=== PATIENT | male | born 1955 | race Caucasian/White ===

== ENCOUNTER → 2020-02-18 | Outpatient (CLI) | payer OTHER, BC ==
[~2020-02-18] MED LIST: ACET65TA PO; ACETAZOLAMIDE PO; BETI1SOL OP; BIMA01SOL OD; BRIMONIDINE OD; CYCL-707; LATA0.0015 OP; LUMIGAN OD; NAPR-885; SIMV10TA21 PO
--- NOTE | 2020-02-25 12:08 | REP ---
CLAVICLE STUDY CLINICAL: Pain with muscle strain. TECHNIQUE: Two views of the left clavicle. FINDINGS: The clavicle is intact and there is no evidence for acute fracture or dislocation. Mild age-related degenerative changes at the acromioclavicular joint include subtle spurring and minimal subchondral sclerosis. Surrounding soft tissues are normal. IMPRESSION: Very mild age-related degenerative changes at the acromioclavicular joint. MTDD
--- NOTE | 2020-02-25 12:10 | REP ---
LEFT SHOULDER SERIES CLINICAL: Pain. Muscle strain. TECHNIQUE: Internal rotation, external rotation, and wide view of the left shoulder. FINDINGS: Subtle spurring and cortical irregularity at the acromioclavicular joint noted. The subacromial space is normal. No acute fracture or dislocation. No periarticular calcifications or loose bodies identified. IMPRESSION: Mild age-related degenerative changes at the acromioclavicular joint. MTDD
== END ==
LOC: M WUC 09:55
PROVIDERS: ATTEND Physician Assistant
DX: S46.012A Strain of muscle(s) and tendon(s) of the rotator cuff of left shoulder, initial encounter (principal); M19.012 Primary osteoarthritis, left shoulder; X58.XXXA Exposure to other specified factors, initial encounter; Y92.9 Unspecified place or not applicable

== ENCOUNTER → 2020-04-17 | Outpatient (CLI) | payer OTHER, BC | LOC: M LABSMTC 08:01 | PROVIDERS: ATTEND Anesthesiology | DX: Z01.812 Encounter for preprocedural laboratory examination (principal); Z20.828 Contact with and (suspected) exposure to other viral communicable diseases | CPT/HCPCS: C9803; U0003 ==

== ENCOUNTER → 2020-04-19 | Outpatient (CLI) | payer BC, OTHER ==
--- NOTE | 2020-04-19 13:35 | ECGEPIP ---
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 Electronically Signed on 04-19-2020 13:35:14 EDT by Cuco Koenig
== END ==
LOC: M EKG 12:17
PROVIDERS: ATTEND Anesthesiology
DX: I10 Essential (primary) hypertension (principal)

== ENCOUNTER 2020-04-22 08:19 | Day surgery (SDC) | payer OTHER, BC ==
[~2020-04-22] VITALS: Ht 167.6 cm; Wt 74.6 kg
[~2020-04-22 08:19] MED LIST changes: +LR 1,000 ML IV ONE; +ceFAZolin SOD 2 GM in IV 1 EA IV ONE; +fentaNYL 100 MCG/2 ML INJECTION (J3010) IV SCH
[2020-04-22] MEDS ORDERED: ROPIvacaine 0.5% 30ML INJECTION (J2795 PER 1MG) ONE (08:20)
[2020-04-22] MEDS ORDERED: EPINEPHrine INJ 1 MG/ML 1ML AMP ONE (08:20)
[2020-04-22] MEDS ORDERED: dexameTHASONE 10MG/1ML VIAL PRES.FREE (J1100 PER 1MG) ONE (08:20)
[2020-04-22] MEDS ORDERED: MIDAZOLAM INJ 2MG/2ML VIAL (J2250 PER 1MG) As Ordered ONE (09:21)
[2020-04-22] MEDS ORDERED: fentaNYL 100 MCG/2 ML INJECTION (J3010) As Ordered ONE ×2 (09:21→10:31)
[2020-04-22] MEDS: MIDAZOLAM INJ 2MG/2ML VIAL (J2250 PER 1MG) IV SCH ×2 (09:40→09:42)
[2020-04-22] MEDS ORDERED: EPINEPHrine 1MG/ML INJ 30ML MD-VIAL As Ordered ONE (10:06)
[2020-04-22] MEDS ORDERED: propofoL 200 MG/20 ML VIAL As Ordered ONE ×2 (10:31→12:25)
[2020-04-22] MEDS ORDERED: ONDANSETRON 4MG/2ML VIAL As Ordered ONE ×2 (10:32→13:47)
[2020-04-22] MEDS ORDERED: dexameTHASONE 4 MG/ML 1ML VIAL (J1100 PER 1MG) As Ordered ONE (10:32)
[2020-04-22] MEDS ORDERED: ROCURONIUM BROMIDE 50 MG/5 ML VIAL As Ordered ONE (10:32)
[2020-04-22] MEDS ORDERED: METOCLOPRAMIDE INJ 10MG/2ML VIAL (J2765 PER 1) As Ordered ONE (10:32)
[2020-04-22] MEDS ORDERED: ePHEDrine SULFATE 25 MG/5 ML(5MG/ML) SYRINGE As Ordered ONE (10:34)
[2020-04-22] MEDS ORDERED: GLYCOPYRROLATE INJ 0.2 MG/ML 2 ML VIAL As Ordered ONE (11:06)
[2020-04-22] MEDS ORDERED: SUGAMMADEX SODIUM 500 MG/5 ML VIAL (BRIDION) As Ordered ONE (11:07)
[2020-04-22] MEDS ORDERED: PHENYLephrine HCL 500 MCG/5 ML (100MCG/ML) SYRINGE (J2370) As Ordered ONE ×2 (11:08→11:50)
[2020-04-22] MEDS ORDERED: LIDOCAINE 2% 100MG/5ML SDV (FOR ANES.) As Ordered ONE (11:31)
[2020-04-22] MEDS ORDERED: LABETALOL 100MG/20ML VIAL As Ordered ONE (13:03)
[2020-04-22] MEDS ORDERED: PERCOCET 5MG/325MG TAB As Ordered ONE (13:47)
[2020-04-22] MEDS: ONDANSETRON 4MG/2ML VIAL IV PRN (13:52)
[2020-04-22] MEDS ORDERED: LR 1,000 ML IV SCH ×2 (14:00)
[2020-04-22] MEDS ORDERED: PERCOCET 5MG/325MG TAB PO PRN (14:00)
[2020-04-22] MEDS ORDERED: METOCLOPRAMIDE INJ 10MG/2ML VIAL (J2765 PER 1) IV PRN (14:00)
[2020-04-22] MEDS ORDERED: fentaNYL 100 MCG/2 ML INJECTION (J3010) IV PRN (14:00)
[2020-04-22 15:20] VITALS: BP 133/86
--- NOTE | 2020-04-23 13:58 | RO ---
DATE OF OPERATION: 04/22/2020 PREOPERATIVE DIAGNOSES: 1. Left shoulder complete subscapularis tear. 2. Left shoulder long head biceps tendonitis. 3. Left shoulder impingement. 4. Left shoulder AC joint arthritis. POSTOPERATIVE DIAGNOSES: 1. Left shoulder complete subscapularis tear. 2. Left shoulder long head biceps tendonitis. 3. Left shoulder impingement. 4. Left shoulder AC joint arthritis. PROCEDURES: 1. Left shoulder arthroscopic rotator cuff repair (subscapularis). 2. Left shoulder open subpectoral biceps tenodesis. 3. Left shoulder arthroscopic subacromial decompression including acromioplasty. 4. Left shoulder arthroscopic distal clavicle excision. SURGEON: Malick Bell MD COMPLIANCE REPRESENTATIVE DEALER: NICOLE Serra ANESTHESIA: General. IV FLUIDS: Lactated Ringer's. ESTIMATED BLOOD LOSS: 10 mL. IMPLANTS: Arthrex proximal biceps button x1; Arthrex 4.75 mm PEEK SwiveLock anchor x3. CLOSURE: Monocryl, nylon. DESCRIPTION OF PROCEDURE: The patient identified in the preoperative holding area. The left arm was marked. He had an interscalene nerve block from anesthesia. He was then brought to the operating room and placed supine on a well-padded OR table. General anesthesia was induced. On examination the left arm had 170 degrees of forward flexion, 90 external rotation, no increased anterior, posterior translation. The left arm was placed into the Arthrex Star sleeve, lateral decubitus traction moscoso and then he was placed in right side down lateral decubitus position with 10 lb of traction. He was secured to the OR table. The left shoulder was prepped and draped in the normal sterile fashion with ChloraPrep. He received appropriate IV antibiotics within one hour of incision. Ishmael Ziegler was present for the entire procedure and participated in all essential portions of the procedure. This included patient positioning, draping, holding the arthroscope, holding retractors during the biceps tenodesis and assisting with whip stitching of the tendon. He also was crucial during the subscapularis repair holding arthroscopic retractors and assisting with placing anchors and passing and retrieving sutures. He also performed the wound closure, applied the dressing and brace. Time out had been performed per hospital protocol. The left shoulder was insufflated with lactated Ringers. A standard posterolateral portal was made with an 11-blade. A 30-degree arthroscope was introduced into the joint and a diagnostic arthroscopy was carried out. 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 There was some low grade tearing of the anterior inferior labrum. Negative drivethrough sign. There was very low grade partial articular tearing of the supraspinatus, this was minimal. Infraspinatus and teres were intact. There was a full thickness tear of the subscapularis. The upper border was not even visualized. It has basically torn and retracted inferiorly and medially. Long head of the biceps appeared thickened. An anterior working portal was established through the rotator interval. In order to perform an arthroscopic subscapularis repair this required a tenotomy. The biter was used to release the long head of the biceps off the superior labrum. The shaver was used to debride the stump and then we proceeded with open subpectoral biceps tenodesis. 15-blade was used to make an incision just lateral to the axilla. Subcutaneous dissection with Metzenbaum scissors down to the fascia which was carefully opened with cautery. Right angle clamp was used to dissect out the long head of the biceps which had significant tendinopathy and hypertrophy. The Arthrex proximal biceps kit was then opened, running locking whip stitch was placed with the FiberLoop. Excess tendon was trimmed and sent to pathology. Sutures were loaded through the button per routine. [place]-tip drill was used to drill unicortical hole within the bicipital groove. Irrigation was used to remove bony debris. Button was passed through the drill hole onto composition teacher, sutures were toggled, this flipped the button and then reduced the tendon along the bicipital groove nicely. A curved free needle was used to pass one limb of FiberWire back through the tendon, knots were tied by hand and locked the construct in place. Excess suture trimmed and discarded. Incision was re-irrigated and closed in layered fashion with 2-0 Vicryl, 2-0 Vicryl, running Monocryl. At the end of the case, Steri-Strips were placed. The arthroscope was then placed back into the joint. I then used the meniscal biter and cautery to release the middle glenohumeral ligament. A switching stick was then used to develop tissue plane both anterior and posterior to the subscapularis. His intraoperative findings matched nicely with his preoperative MRI. Essentially the majority of the tendon had torn and retracted somewhat medial and then there was some very thin tissue still present laterally. I created an accessory superolateral portal and through that I was able to debride the undersurface of the subscapularis to create some bleeding tissue. The ring curet was then used to scrape soft tissue off the lesser tuberosity to improve healing and I removed about 3 mm of the articular cartilage just off the lesser tuberosity to increase the size of the footprint. Due to the size of the subscapularis tear I felt that this required two anchors. The Scorpion was used to pass FiberTape through the middle half of the subscapularis through healthy tissue and then the sutures were retrieved out the anterior portal, loaded through a 4.75 mm PEEK SwiveLock anchor. I had to place a blunt trocar through the lateral portal to improve my visualization; I also had to use a 70-degree scope but I actually had great visualization of the lesser tuberosity and then was able to use a mallet and awl to create a socket for the anchor. The anchor was docked, sutures tensioned and then the anchor was inserted by hand with excellent fixation. This nicely pulled the subscap laterally and then the upper border of the subscap was already much better visualized. I then placed FiberTape through the subscapularis again, this time through the upper one- third. I then had to go into the subacromial space and perform an extensive bursectomy via lateral working portal and all the bursa was removed, especially anteriorly and then I was able to find those sutures and pass them to myself into the joint and they were loaded through another 4.75 SwiveLock. 70-degree scope was again used and this time the awl was used to create a socket in the upper portion of lesser tuberosity. The SwiveLock anchor was docked, sutures tensioned which nicely restored the typical appearance of the subscap and then the anchor was malleted and inserted by hand with excellent fixation. Excess suture trimmed and discarded. The subscap was now well compressed to the lesser tuberosity and had a normal contour. The joint was irrigated and drained. The arthroscope was placed back into the subacromial space and cautery was used to partially release the CA ligament, expose the entire anterior acromion. He had a fairly large spur; there was minimal room for the supraspinatus at that point. The bur was used to perform a formal acromioplasty turning this into type 1 morphology now with significantly improved room for the supraspinatus. Bony debris was removed with shaver. I then proceeded with distal clavicle excision. There was stvd-eo-[id number] contact at the AC joint, the bur was used to remove approximately 6 mm of the distal clavicle. At the completion of the distal clavicle excision there was a nice 8-9 mm gap and the scope was placed into the anterior portal ensuring no posterosuperior bone remained. Attention was turned back to the supraspinatus one last time and after further bursectomy and removal of bony debris I would estimate there to be very low grade bursal-sided fraying of the supraspinatus and gentle debridement was performed with shaver. I would estimate the degree of supraspinatus tearing combined articular and bursal to be less than 10%. Shoulder was irrigated and drained. Portals were closed with nylon sutures. Steri-Strips were placed over the biceps incision. Bulky sterile dressing was applied. He was carefully placed into the R2 sling and then extubated and transferred to the PACU in stable condition. TREVON
== END 2020-04-22 15:42 | disposition home or self-care (01) ==
LOC: M SDC 08:19
PROVIDERS: ATTEND Orthopaedic Surgery
DX: M75.22 Bicipital tendinitis, left shoulder (principal); M75.122 Complete rotator cuff tear or rupture of left shoulder, not specified as traumatic; M75.42 Impingement syndrome of left shoulder; M13.812 Other specified arthritis, left shoulder; I10 Essential (primary) hypertension; K21.9 Gastro-esophageal reflux disease without esophagitis; J45.909 Unspecified asthma, uncomplicated; F43.10 Post-traumatic stress disorder, unspecified; Z79.899 Other long term (current) drug therapy
CPT/HCPCS: 23430; 29824; 29826; 29827; 88304; C1713; J0171; J0690; J1100; J2250; J2370; J2405; J2765; J2795; J3010

== ENCOUNTER 2020-08-31 05:14 | Emergency (ER) | payer BC, OTHER ==
[~2020-08-31] VITALS: Ht 167.6 cm; Wt 79.5 kg
[~2020-08-31 05:14] MED LIST changes: -LR 1,000 ML IV ONE; -ceFAZolin SOD 2 GM in IV 1 EA IV ONE; -fentaNYL 100 MCG/2 ML INJECTION (J3010) IV SCH
[2020-08-31] MEDS ORDERED: ASPIRIN 81 MG CHEW TABLET PO ONE (05:40)
[2020-08-31 05:43] LABS: BASO % 0.4 % (0.0-1.0); EOS # 0.1 10^3/uL (0.0-0.5); EOS % 0.9 % (0.0-3.0); HEMATOCRIT 46.7 % (42.0-52.0); HEMOGLOBIN 15.2 g/dl (13.5-17.5); LYMPH # 1.6 10^3/uL (1.5-5.0); LYMPH % 16.8 % (24.0-44.0); MEAN CORPUSCULAR HEMOGLOBIN 28.1 pg (27.0-33.0); MEAN CORPUSCULAR HGB CONC 32.5 g/dl (32.0-36.5); MEAN CORPUSCULAR VOLUME 86.3 fl (80.0-96.0); MONO % 10.9 % (2.0-8.0); NEUTROPHILS # 6.7 10^3/uL (1.5-8.5); NEUTROPHILS % 70.5 % (36.0-66.0); PLATELET COUNT, AUTOMATED 238 10^3/uL (150-450); RED BLOOD COUNT 5.41 10^6/uL (4.30-6.10); WHITE BLOOD COUNT 9.5 10^3/uL (4.0-10.0)
[2020-08-31] MEDS: NITROGLYCERIN 0.4 MG SUBL TABLET SL PRN ×3 (05:46→06:38)
[2020-08-31 06:22] LABS: BLOOD UREA NITROGEN 11 MG/DL (7-18); CARBON DIOXIDE LEVEL 25 MEQ/L (21-32); CHLORIDE LEVEL 110 MEQ/L (98-107); CK-MB VALUE MASS 22.6 NG/ML (<3.6); CPK CREATINE PHOSPHOKINASE 455 U/L (39-308); GLOMERULAR FILTRATION RATE > 60.0 (>49); GLUCOSE, FASTING 124 MG/DL (70-100); MB/CK RELATIVE INDEX 4.97 (< OR =4); POTASSIUM SERUM 4.1 MEQ/L (3.5-5.1); SODIUM LEVEL 141 MEQ/L (136-145); TROPONIN I 5.51 NG/ML (< 0.10)
[2020-08-31] MEDS ORDERED: ONDANSETRON 4MG/2ML VIAL IV ONE (06:40)
[2020-08-31] MEDS ORDERED: HEPARIN SOD (PORCINE) 5000UNITS/ML 1ML VIAL/SYRINGE IV ONE (06:40)
[2020-08-31] MEDS ORDERED: HEPARIN DRIP 25,000 UNITS in IV 1 EA IV SCH (06:40)
[2020-08-31] MEDS ORDERED: CLOPIDOGREL 300 MG TAB (PLAVIX) PO ONE (06:40)
[2020-08-31] MEDS ORDERED: MORPHINE 4 MG/ML 1ML VIAL/SYRINGE (J2270) IV PRN (06:40)
[2020-08-31] MEDS ORDERED: NITROGLYCERIN 2% OINT 1 GM *U/D* PKT TOP ONE (07:00)
[2020-08-31 07:05] LABS: INR 0.92; PROTHROMBIN TIME 12.6 SECONDS (12.5-14.3)
[2020-08-31 07:06] LABS: PARTIAL THROMBOPLASTIN TIME 30.7 SECONDS (24.2-38.5)
[2020-08-31 07:09] VITALS: BP 155/106
--- NOTE | 2020-08-31 07:18 | ECGEPIP ---
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
[2020-08-31 07:20] LABS: RSV AMPLIFICATION NEGATIVE (NEGATIVE)
[2020-08-31 07:51] VITALS: BP 160/83
--- NOTE | 2020-08-31 11:44 | REP ---
INDICATION: CHEST PAIN. COMPARISON: 05/21/2015. TECHNIQUE: SINGLE PORTABLE AP VIEW OF THE CHEST WAS PERFORMED. FINDINGS: There is no acute infiltrate or pulmonary edema. The heart is normal in size. There is mild calcification of the thoracic aorta. The mediastinal silhouette is otherwise unchanged. There are degenerative changes of the spine. IMPRESSION: NO ACUTE PULMONARY DISEASE. A preliminary report was provided by virtual Radiology at the time of the exam. <Electronically signed by Daquan Valencia > 08/31/20 [id number]
== END 2020-08-31 07:53 | disposition short-term general hospital (02) ==
LOC: M ED 05:14
DX: I21.4 Non-ST elevation (NSTEMI) myocardial infarction (principal); I45.19 Other right bundle-branch block; I10 Essential (primary) hypertension; Z79.899 Other long term (current) drug therapy
CPT/HCPCS: 71045; 80048; 82550; 82553; 84484; 85025; 85610; 85730; 87631; 93005; 93041; 94760; 96374; 96375; 99285; J1644; J2270; J2405

== ENCOUNTER → 2021-01-11 | Outpatient (CLI) | payer OTHER ==
--- NOTE | 2021-01-11 17:23 | REP ---
INDICATION: DYSPNEA, UNSPECIFIED COMPARISON: 08/31/2020 and 05/21/2015. TECHNIQUE: PA/Lateral FINDINGS: Lungs: Clear, no infiltrate. Heart: Normal in size. Mediastinum: Mediastinal silhouette unremarkable. Pleural angles: Unremarkable.. Bones and soft tissues: There are degenerative changes of the spine without compression deformity. IMPRESSION: No acute pulmonary disease. <Electronically signed by Daquan Valencia > 01/11/21 [id number]
== END ==
LOC: M RAD 16:40
PROVIDERS: ATTEND Nurse Practitioner Family
DX: R06.02 Shortness of breath (principal)

== ENCOUNTER → 2021-01-20 | Outpatient (CLI) | payer OTHER ==
[~2021-01-20] MED LIST changes: +METHACHOLINE KIT (J7674) INH ONE
--- NOTE | 2021-01-20 15:02 | PFTRPT ---
Site: [facility], [address] [place], [address] ID: [id number] Name: PORTIA BELL Visit Date: 01/20/2021 Second ID: [id number] Referring Doctor: SIOMARA CALDERON Reviewing Doctor: Sony Sweeney MD Irrigation Equipment Mechanic: Ifeoma ESCOBAR RRT Age: 65 : 1955 Sex: Male Race: Height: 66.00 Inches Weight: 170.00 Lbs BSA: 1.87 Order IDs: [id number] Requested Test(s): <RESP-PFT.METH CHAL> Diagnosis: R05 puffs of albuterol for post bronchodilator. Review Status: Not Reviewed Pre-Bronch Post-Bronch Pred Actual %Pred Actual %Chng SPIROMETRY FVC (L) 4.00 3.58 89 3.53 -1 FEV1 (L) 2.99 2.52 84 2.47 -2 FEV1/FVC (%) 75 71 94 70 FEF 25% (L/sec) 6.80 4.02 59 3.65 -9 FEF 50% (L/sec) 4.37 2.15 49 2.00 -6 FEF 75% (L/sec) 1.23 0.74 60 0.84 13 FEF 25-75% (L/sec) 2.43 1.75 71 1.70 -2 FEF Max (L/sec) 8.07 5.45 67 5.78 6 FIVC (L) 3.88 3.69 -4 FIF 50% (L/sec) 4.63 5.64 121 6.93 22 FIF Max (L/sec) 5.70 7.30 28 Expiratory Time (sec) 7.62 6.66 -12 Back Extrap Vol (L) 0.08 0.05 -33 Time To FEFmax (sec) 0.084 0.062 -25
== END ==
LOC: M CARPUL 14:05
PROVIDERS: ATTEND Nurse Practitioner Family
DX: R05 Cough (principal)
CPT/HCPCS: 94070; 95070; J7674

== ENCOUNTER → 2021-06-22 | Outpatient (CLI) | payer OTHER ==
[~2021-06-22] MED LIST changes: -METHACHOLINE KIT (J7674) INH ONE
--- NOTE | 2021-06-23 22:28 | REPVR ---
PROCEDURE INFORMATION: Exam: MR Lumbar Spine Without Contrast Exam date and time: 06/22/2021 6:43 PM Age: 65 years old Clinical indication: Low back pain; Additional info: Lbp TECHNIQUE: Imaging protocol: Multiplanar magnetic resonance images of the lumbar spine without intravenous contrast. COMPARISON: No relevant prior studies available. FINDINGS: Vertebrae: Mild convexity of the lumbar spine to the left. The lumbar vertebral bodies are normal in height. Mild retrolisthesis of L2 on L3 and L5 on S1. Slight retrolisthesis of L4 on L5. Spinal cord: The distal end of the conus medullaris ends at L1, normal in position. Multilevel findings: Degenerative disc disease is noted diffusely within the lumbar spine, with disc bulge/osteophyte complexes. A decrease in disc height at L2-L3, L4-L5, and L5-S1, with heterogeneous signal intensity of the discs. Edema within the bone marrow adjacent the endplates and extending into the right pedicle at L2-L3, which is likely degenerative. Due to the presence of mild right paravertebral swelling, infection cannot be excluded. No significant disc edema on T2. Modic endplate changes at L4-L5 and L5-S1. L1-L2: Disc bulging causes a minimal impression on the left ventral thecal sac, without significant spinal canal stenosis. No significant neural foraminal narrowing bilaterally. L2-L3: Bilateral facet arthropathy with hypertrophy of the ligamentum flavum. A broad-based disc bulge/osteophyte complex with disc extrusion extending inferiorly. Prominence of the posterior epidural fat visualized. Moderate narrowing of the thecal sac. Narrowing of both lateral recesses. Moderate left and severe right neural foraminal narrowing. L3-L4: Bilateral facet arthropathy with hypertrophy of the ligamentum flavum. Posterior disc bulge/osteophyte complexes with minimal narrowing of the thecal sac. This is most significant on the right side. Narrowing of both lateral recesses. Moderate right and [id number] left neural foraminal narrowing. L4-L5: Bilateral facet arthropathy with hypertrophy of the ligamentum flavum. A broad-based disc bulge is identified, with minimal narrowing of the thecal sac. Narrowing of both lateral recesses. Severe bilateral neural foraminal narrowing, left side greater than right. L5-S1: Bilateral facet arthropathy. Broad-based disc bulge with small central herniation causing a mild impression on the ventral thecal sac without significant spinal canal stenosis. Narrowing of the lateral recesses, left side greater than right. Severe bilateral neural foraminal narrowing. Soft tissues: See above. IMPRESSION: 1. Mild retrolisthesis of L2 on L3 and L5 on S1. Slight retrolisthesis of L4 on L5. 2. Edema within the bone marrow adjacent the endplates and extending into the right pedicle at L2-L3, which is likely degenerative. Due to the presence of mild right paravertebral swelling, infection cannot be excluded. Clinical correlation is recommended. 3. Degenerative changes are noted diffusely within the lumbar spine, as described above. 4. Moderate narrowing of the thecal sac at L2-L3, with a broad-based disc bulge/osteophyte complex and disc extrusion. 5. Minimal narrowing of the thecal sac at L3-L4 and L4-L5. A small central disc herniation is noted at L5-S1 causing a mild impression on the ventral thecal sac, without significant spinal canal stenosis. 6. Neural foraminal narrowing from L2-L3 through L5-S1. Electronically signed by: Hector Aguilar On 06/23/2021 22:28:08 PM
== END ==
LOC: M RAD 17:29
PROVIDERS: ATTEND Family Medicine
DX: M51.26 Other intervertebral disc displacement, lumbar region (principal)

== ENCOUNTER 2022-11-16 09:18 | Day surgery (SDC) | payer MEDICARE, OTHER ==
[~2022-11-16] VITALS: Ht 167.6 cm; Wt 73.9 kg
[~2022-11-16 09:18] MED LIST changes: +ASPI81TA26 PO; +ATOR80TA59 PO; -BETI1SOL OP; +BSS IRRIG/VANCO(10MG)/TOBRA(5MG)/EPINEPH(1:1000-0.5CC)500ML BAG-ORONLY IR ONE; +CEFUROXIME 1MG/0.1ML INTRACAMERAL INJ As Ordered ONE; +CYCLOPENTOLATE 1% OPHTH SOLN 2ML BTL OD SCH; +GABA-1171 PO; +LIDOCAINE 1% SDV 5ML VIAL As Ordered ONE; +LIDOCAINE 3.5 % 1ML OPHTH TOPICAL GEL OU ONE; +LISI40TA4 PO; +MELO15TA28 PO; +METO25TA4 PO; +OFLOXACIN 0.3 % (OCUFLOX) OPTH SOL 5ML OD ONE; +PHENYLEPHRINE 10% OPHTH SOL 5ML OD PRN; +PHENYLEPHRINE 2.5% OPHTH SOL 2ML OD SCH; +TIMO5DRO5 OP; +TROPICAMIDE 1% OPHTH SOLN 15ML OD SCH; +VITA200031 PO; +XALA0.007 OU
[2022-11-16] MEDS ORDERED: MIDAZOLAM INJ 2MG/2ML VIAL As Ordered ONE (09:40)
[2022-11-16] MEDS ORDERED: fentaNYL 100 MCG/2 ML INJECTION As Ordered ONE (09:41)
[2022-11-16 11:18] VITALS: BP 152/61
== END 2022-11-16 11:56 | disposition home or self-care (01) ==
LOC: M SDC 09:18
PROVIDERS: ATTEND Ophthalmology
DX: H25.11 Age-related nuclear cataract, right eye (principal); I10 Essential (primary) hypertension; H40.9 Unspecified glaucoma; E78.00 Pure hypercholesterolemia, unspecified; K31.9 Disease of stomach and duodenum, unspecified; M16.11 Unilateral primary osteoarthritis, right hip; F43.10 Post-traumatic stress disorder, unspecified; M54.2 Cervicalgia; Z87.891 Personal history of nicotine dependence; Z79.899 Other long term (current) drug therapy; Z79.82 Long term (current) use of aspirin
CPT/HCPCS: 66984; C1783; J0697; J2250; J3010; V2632

== ENCOUNTER 2023-01-08 10:05 | Day surgery (SDC) | payer MEDICARE, OTHER ==
[~2023-01-08] VITALS: Ht 167.6 cm; Wt 71.4 kg
[~2023-01-08 10:05] MED LIST changes: -CYCLOPENTOLATE 1% OPHTH SOLN 2ML BTL OD SCH; +CYCLOPENTOLATE 1% OPHTH SOLN 2ML BTL OS SCH; +MIDAZOLAM INJ 2MG/2ML VIAL As Ordered ONE; -OFLOXACIN 0.3 % (OCUFLOX) OPTH SOL 5ML OD ONE; +OFLOXACIN 0.3 % (OCUFLOX) OPTH SOL 5ML OS ONE; -PHENYLEPHRINE 10% OPHTH SOL 5ML OD PRN; +PHENYLEPHRINE 10% OPHTH SOL 5ML OS PRN; -PHENYLEPHRINE 2.5% OPHTH SOL 2ML OD SCH; +PHENYLEPHRINE 2.5% OPHTH SOL 2ML OS SCH; -TROPICAMIDE 1% OPHTH SOLN 15ML OD SCH; +TROPICAMIDE 1% OPHTH SOLN 15ML OS SCH; +fentaNYL 100 MCG/2 ML INJECTION As Ordered ONE
[2023-01-08] MEDS ORDERED: ONDANSETRON 4MG 2ML VIAL IV PRN (11:30)
[2023-01-08 12:05] VITALS: BP 150/65; TEMP 97.2; O2SAT 98
== END 2023-01-08 12:25 | disposition home or self-care (01) ==
LOC: M SDC 10:05
PROVIDERS: ATTEND Ophthalmology
DX: H25.12 Age-related nuclear cataract, left eye (principal); I10 Essential (primary) hypertension; E78.5 Hyperlipidemia, unspecified; K21.9 Gastro-esophageal reflux disease without esophagitis; F43.10 Post-traumatic stress disorder, unspecified; R06.83 Snoring; Z87.891 Personal history of nicotine dependence; Z79.82 Long term (current) use of aspirin; Z79.811 Long term (current) use of aromatase inhibitors; Z79.899 Other long term (current) drug therapy
CPT/HCPCS: 66984; C1783; J0697; J2250; J2405; J3010; V2632

== ENCOUNTER 2024-07-16 08:52 | Emergency (ER) | payer OTHER ==
[~2024-07-16] VITALS: Ht 167.6 cm; Wt 75.9 kg
[~2024-07-16 08:52] MED LIST changes: -BSS IRRIG/VANCO(10MG)/TOBRA(5MG)/EPINEPH(1:1000-0.5CC)500ML BAG-ORONLY IR ONE; -CEFUROXIME 1MG/0.1ML INTRACAMERAL INJ As Ordered ONE; -CYCLOPENTOLATE 1% OPHTH SOLN 2ML BTL OS SCH; -LIDOCAINE 1% SDV 5ML VIAL As Ordered ONE; -LIDOCAINE 3.5 % 1ML OPHTH TOPICAL GEL OU ONE; -MIDAZOLAM INJ 2MG/2ML VIAL As Ordered ONE; -OFLOXACIN 0.3 % (OCUFLOX) OPTH SOL 5ML OS ONE; -PHENYLEPHRINE 10% OPHTH SOL 5ML OS PRN; -PHENYLEPHRINE 2.5% OPHTH SOL 2ML OS SCH; -TROPICAMIDE 1% OPHTH SOLN 15ML OS SCH; -fentaNYL 100 MCG/2 ML INJECTION As Ordered ONE
[2024-07-16 09:21] LABS: KETONE, URINE AUTO RFX NEGATIVE (NEGATIVE); LEUKOCYTE ESTERASE UR AUTO RFX NEGATIVE (NEGATIVE); MUCUS, URINE RFX SMALL (NEGATIVE); NITRITE, URINE AUTO RFX NEGATIVE (NEGATIVE); RBC, URINE AUTO RFX 3 /HPF (0-3); SQUAM EPITHELIAL CELL UR AURFX 0 /HPF (0-6); WBC, URINE AUTO RFX 1 /HPF (0-3)
[2024-07-16 11:58] VITALS: BP 148/69; TEMP 96.2; O2SAT 98
[2024-07-16 12:04] LABS: GC DNA AMPLIFICATION NEGATIVE (NEGATIVE)
[2024-07-16] MEDS ORDERED: PYRI1TAB5 PO (12:25)
== END 2024-07-16 12:31 | disposition home or self-care (01) ==
LOC: M ED 08:52
DX: R30.0 Dysuria (principal); I10 Essential (primary) hypertension; Z79.1 Long term (current) use of non-steroidal anti-inflammatories (NSAID); Z79.899 Other long term (current) drug therapy

== ENCOUNTER → 2024-09-02 | Outpatient (CLI) | payer OTHER ==
[~2024-09-02] MED LIST changes: +PYRI1TAB5 PO
== END ==
LOC: M RAD 15:00
PROVIDERS: ATTEND Nurse Practitioner Family
DX: N50.811 Right testicular pain (principal)

== ENCOUNTER → 2024-09-12 | Outpatient (CLI) | payer MEDICARE, OTHER | LOC: M RAD 11:19 | PROVIDERS: ATTEND Nurse Practitioner Family | DX: N30.81 Other cystitis with hematuria (principal); N20.0 Calculus of kidney; N26.1 Atrophy of kidney (terminal); N28.1 Cyst of kidney, acquired ==

== ENCOUNTER → 2025-03-16 | Outpatient (CLI) | payer MEDICARE, OTHER ==
[~2025-03-16] MED LIST changes: +LISI40TA10 PO; -LISI40TA4 PO
== END ==
LOC: M RAD 15:08
PROVIDERS: ATTEND Registered Nurse
DX: N18.9 Chronic kidney disease, unspecified (principal)